=== PATIENT | male | born 1980 | race Caucasian/White ===

== ENCOUNTER 2016-08-02 16:00 | Emergency (ER) | payer SELFPAY ==
[2016-08-02 16:03] VITALS: BP 138/82; BMI 22.9
[2016-08-02] MEDS ORDERED: TORADOL 60 MG VIAL IM ONE (16:55)
[2016-08-02] MEDS ORDERED: NORFLEX INJ IM ONE (16:55)
[2016-08-02] MEDS ORDERED: NORFLEX INJ ONE (16:58)
[2016-08-02] MEDS ORDERED: TORADOL 60 MG VIAL ONE (16:58)
--- NOTE | 2016-08-02 17:41 | RAD ---
Lumbar spine, four views Indication: Back pain after chopping wood yesterday. Left lower extremity numbness Findings: The vertebral body heights and alignment are normally maintained. The intervertebral disc spaces and facet joints are intact. No spondylolysis is identified. Impression: Negative exam. Reported By:
--- NOTE | 2016-08-02 17:56 | DR.MBACK ---
HPI - Time Seen Time seen: 17:55 - PCP Primary Care Physician: LIV - HPI Comment HPI Comment: PATIENT WAS THROWING STUMPS YESTERDAY AND INJURED LOWER BACK. PAIN RADIATES TO RIGHT LEG. PAIN IS GETTING WORSE. - Complaint Chief Complaint Doctors Comments: LOW BACK PAIN TIMES ONE DAY. Chief Complaint:: PT. C/O LOWER BACK PAIN THAT RADIATES DOWN RIGHT LEG. PT. STATES HIM AND HIS FRIEND WERE THROWING STUMPS YESTERDAY AND HE BELIEVES TO HAVE INJURED HIMSELF THEN. - Reviewed Nurses Notes Review: Yes - Source History Provided: Patient - Mode of Arrival Mode of Arrival: Ambulatory - Timing Onset of Chief Complaint: 08/01/16 - Duration Duration: Constant Duration: Days - Location Back Pain Location: Right, BACK, Lumbar Radiation To: Right - Severity Severity: Moderate - Quality Quality: Aching, Sharp - Context Onset: Spontaneous Circumstance: Unknown History of: Chronic Back Pain - Modifying Factors Worsened By: Movement - Associated Signs and Symptoms Back Pain Symptoms: None Numbness: None Weakness: None PMH - PMH Past Medical History: Yes Past Medical History: Hypertension Past Surgical History: Yes Surgical History: Appendectomy - Family History History of Family Medical Conditions: No - Social History Does patient currently use any type of tobacco product: No Have you used tobacco products in the last 12 months: No Type of Tobacco Use: None Does any household member use tobacco: No Alcohol Use: None Do you use any recreational Drugs:: No Lives With: Family Lives Where: Home - infectious screening In the last 2 months have you had wt loss of >10#?: NO Have you had fever, night sweats or hemotysis?: No Have you traveled outside the country in the last 6 months?: No Isolation: Standard ROS - Review of Systems Constitutional: No Symptoms Reported Eyes: No Symptoms Reported ENTM: No Symptoms Reported Respiratoy: No Symptoms Reported Cardiovascular: No Symptoms Reported Gastrointestinal/Abdominal: No Symptoms Reported Genitourinary: No Symptoms Reported Neurological: No Symptoms Reported Musculoskeletal: Back Pain, Back Integumentary: No Symptoms Reported Hematologic/Lymphatic: No Symptoms Reported Endocrine: No Symptoms Reported All Other Systems: Reviewed and Negative PE - Vital Signs Vitals: Temperature 98.4 F Pulse Rate 112 Respiratory Rate 17 Blood Pressure 138/82 O2 Sat by Pulse Oximetry 100 - General Limitations: No Limitations General Appearance: Alert - Head Head Exam: Normal Inspection - Eyes Eye exam: Normal Appearance - ENT ENT Exam: Normal External Ear Exam - Chest Chest Inspection: Symmetric Chest Wall Rise - Respiratory Respiratory Exam: Normal Lung Sounds Bilat Respiratory Exam: Bilateral Clear to Auscultation - Cardiovascular Cardiovascular Exam: Regular Rate, Normal Rhythm, Normal Heart Sounds - Abdominal Exam Abdominal Exam: Normal Bowel Sounds, Soft. negative: Tenderness - Rectal Rectal Exam: Deferred - Genitourinary Exam: Male: Deferred - Extremities Extremities Exam: Normal Inspection - Back Back Exam: Paraspinal Tenderness, Vertebral Tenderness - Neurological Neurological Exam: Alert, Oriented X3 - Psychiatric Psychiatric Exam: Normal Affect, Normal Mood - Skin Skin Exam: Normal Color MDM - Differential Diagnosis Differential Diagnosis: DJD, Musculoskeletal Pain, Strain Course - Treatment Treatment: SEE ORDERS - Education/Counseling Education/Counseling: Patient, Education Educated On: Treatment, Diagnosis, Needs for Follow Up ROR - XRAY XRAY Interpreted by: Radiologist XRAY Findings: REPOER DISCUSS WITH PATIENT - Diagnosis Discharge Problem: Lumbosacral strain Qualifiers: Encounter type: initial encounter Qualified Code(s): S39.012A - Strain of muscle, fascia and tendon of lower back, initial encounter - Discharge Plan Disposition: HOME, SELF-CARE Condition: Stable Prescriptions: Acetaminophen W/ Codeine [Tylenol/Codeine #3 300-30 mg] 1 tab PO Q4-6H PRN #15 tab PRN Reason: Pain Cyclobenzaprine HCl [FLEXERIL 10 MG *] 10 mg PO TID PRN #20 tab PRN Reason: Ibuprofen [MOTRIN TAB 600 MG *] 600 mg PO TID PRN #20 tab PRN Reason: Pain/Inflammation - Follow ups/Referrals Follow ups/Referrals: [facility],None [Primary Care Provider] - 3 days - Instructions Instructions: Lumbosacral Strain Additional Instructions: RETURN TO ED IF WORSE.
== END 2016-08-02 18:02 | disposition home or self-care (01) ==
LOC: ER 16:13
DX: S39.012A Strain of muscle, fascia and tendon of lower back, initial encounter (principal); Y33.XXXA Other specified events, undetermined intent, initial encounter; Y92.9 Unspecified place or not applicable
CPT/HCPCS: 72110; 96372; 99282; 99283; J1885; J2360